=== PATIENT | female | born 2000 | race Caucasian/White ===

== ENCOUNTER 2019-02-13 01:05 | Emergency (ER) | payer OTHER ==
[2019-02-13] MEDS ORDERED: NORMAL SALINE 1000 ML 1,000 ML IV ONE (01:57)
[2019-02-13] MEDS ORDERED: ONDANSETRON HCL INJ/PF 4 MG/2 ML SDV IV ONE (01:58)
[2019-02-13] MEDS ORDERED: KETOROLAC TROMETHAMINE INJ/PF 30 MG/1 ML SDV IV ONE (01:58)
[2019-02-13 01:59] LABS: ABSOLUTE EOSINOPHILS # (AUTO) 0.1 10^3/uL (0.0-0.6); ABSOLUTE LYMPHOCYTES (AUTO) 1.8 10^3/uL (0.5-4.7); ABSOLUTE MONOCYTES (AUTO) 0.5 10^3/uL (0.1-1.4); BASOPHILS % (AUTO) 0.8 % (0-2); HEMATOCRIT 36.7 % (36.0-47.0); HEMOGLOBIN 12.4 g/dL (12.0-15.5); LYMPHOCYTES % (AUTO) 40.5 % (13-45); MEAN CORPUSCULAR HEMOGLOBIN 29.4 pg (27.0-33.4); MEAN CORPUSCULAR HGB CONC 33.7 g/dL (32.0-36.0); MEAN CORPUSCULAR VOLUME 87 fl (80-97); MONOCYTES % (AUTO) 11.2 % (3-13); PLATELET COUNT 226 10^3/uL (150-450); RED CELL DISTRIBUTION WIDTH 14.1 % (11.5-14.0); SEGMENTED NEUTROPHILS % (AUTO) 45.5 % (42-78); TOTAL CELLS COUNTED % (AUTO) 100 %; WHITE BLOOD COUNT 4.4 10^3/uL (4.0-10.5)
--- NOTE | 2019-02-13 02:00 | ER Document Report ---
ED General - General Chief Complaint: Abdominal Pain Stated Complaint: ABDOMINAL PAIN Time Seen by Provider: 02/13/19 01:34 Primary Care Provider: [facility] [Provider Group] - Follow up in 3-5 days TRAVEL OUTSIDE OF THE [place] IN LAST 30 DAYS: No - HPI Notes: Patient is a 18-year-old female that presents to the emergency department for chief complaint of right lower quadrant abdominal pain. Patient reports around 1 PM this afternoon she started having a sharp pain in her right lower abdomen. She states it was initially severe and has lessened to a dull ache currently. She states prior to the pain she felt nauseated and vomited one time. She reports constipation and denies any diarrhea. She denies any fevers or chills. She has had increased white vaginal discharge over the last few days. Patient is sexually active and does not use condoms or co ntrol. She has not taken a home test. LMP 01/12/19. She has no history of pregnancies in the past. Past Medical History: Negative Past Surgical History: Negative Social History: Denies drugs alcohol and tobacco Family History: Reviewed and noncontributory for presenting illness Allergies: Reviewed, see documented allergy list. REVIEW OF SYSTEMS: CONSTITUTIONAL : No fever No chills No diaphoresis No recent illness EENT: No vision changes No congestion No sore throat CARDIOVASCULAR: No chest pain No palpitations RESPIRATORY: No shortness of breath No cough No difficulty breathing GASTROINTESTINAL: abdominal pain nausea vomiting No diarrhea GENITOURINARY: No dysuria No hematuria No difficulty urinating MUSCULOSKELETAL: No back pain No leg pain No arm pain SKIN: No rashes No lesions LYMPHATIC: No swollen, enlarged glands. NEUROLOGICAL: No lightheadedness No headache No weakness No paresthesias PSYCHIATRIC: No anxiety No depression PHYSICAL EXAMINATION: Vital signs reviewed, nursing noted reviewed. GENERAL: Mildly diaphoretic, well-nourished HEAD: Atraumatic, normocephalic. EYES: Eyes appear normal, extraocular movements intact, sclera anicteric, conjunctiva are normal. ENT: nares patent, oropharynx clear without exudates. Moist mucous membranes. NECK: Normal range of motion, supple without lymphadenopathy LUNGS: Breath sounds clear to auscultation bilaterally and equal. No wheezes rales or rhonchi. HEART: Regular rate and rhythm without murmurs ABDOMEN: Soft, no McBurney's point tenderness, right adnexal tenderness, normoactive bowel sounds. Negative psoas sign. No rebound, guarding, or rigid ity. No masses appreciated. : No vaginal discharge, mild vaginal bleeding, no cervical motion tenderness, no external lesions, mild right adnexal tenderness with no fullness, no left adnexal tenderness, no uterine tenderness EXTREMITIES: Nontender, good range of motion, no pitting or edema. NEUROLOGICAL: No focal neurological deficits. Moves all extremities spontaneously Motor and sensory grossly intact on exam. PSYCH: Normal mood, normal affect. SKIN: Warm, diaphoretic, normal turgor, no rashes or lesions noted on exposed skin - Related Data Allergies/Adverse Reactions: No Known Allergies Allergy (Unverified 02/13/19 01:41) Past Medical History - Social History Smoking Status: Never Smoker Chew tobacco use (# tins/day): No Frequency of alcohol use: None Drug Abuse: None Family History: Reviewed & Not Pertinent Patient has suicidal ideation: No Patient has homicidal ideation: No Pulmonary Medical History: Reports: Hx Asthma Renal/ Medical History: Denies: Hx Peritoneal Dialysis Physical Exam - Vital signs Vitals: Temp Pulse Resp BP Pulse Ox 98.2 F 98 H 16 112/66 100 02/13/19 01:18 02/13/19 01:18 02/13/19 01:18 02/13/19 01:18 02/13/19 01:18 Course - Re-evaluation Re-evalutation: 02/13/19 02:00 Vitals reviewed. Nursing notes reviewed. Patient given IV fluids, Toradol and Zofran for symptom medic management. She appears mildly diaphoretic and uncomfortable. Ultrasound will be obtained to evaluate for possible ovarian torsion. Her tenderness is low in her pelvic region and not around McBurney's point. She has no leukocytosis or fevers and I am not currently concerned for acute appendicitis. 02/13/19 03:47 Patient's lab work is unremarkable. Her ultrasound shows no ovarian torsion or cyst. On reevaluation after medication she is no longer diaphoretic and is feeling much better. Gonorrhea and Chlamydia testing has not resulted, I offered patient prophylactic treatment versus waiting for her results. She does not wish to have prophylactic antibiotic treatment and also does not wish to wait for the results. I told her if it was positive I would call her but she would have to come back to the emergency room for treatment. She is in agreement with this plan of care. Patient will be discharged home in stable condition and encouraged to follow with her intermediate project manager. Laboratory 02/13/19 02/13/19 02/13/19 01:50 01:50 01:50 WBC 4.4 RBC 4.20 Hgb 12.4 Hct 36.7 MCV 87 MCH 29.4 MCHC 33.7 RDW 14.1 H Plt Count 226 Seg Neutrophils % 45.5 Lymphocytes % 40.5 Monocytes % 11.2 Eosinophils % 2.0 Basophils % 0.8 Absolute Neutrophils 2.0 Absolute Lymphocytes 1.8 Absolute Monocytes 0.5 Absolute Eosinophils 0.1 Absolute Basophils 0.0 Sodium 140.4 Potassium 3.6 Chloride 107 Carbon Dioxide 26 Anion Gap 7 BUN 17 Creatinine 0.53 Est GFR ( Amer) > 60 Est GFR (Non-Af Amer) > 60 Glucose 98 Calcium 9.7 Total Bilirubin 0.4 Direct Bilirubin 0.2 Neonat Total Bilirubin Not Reportable Neonat Direct Bilirubin Not Reportable Neonat Indirect Bili Not Reportable AST 23 ALT 25 Alkaline Phosphatase 58 Total Protein 6.7 Albumin 3.9 Lipase 138.4 Urine Color YELLOW Urine Appearance SLIGHTLY-CLOUDY Urine pH 7.0 Ur Specific [place] 1.027 Urine Protein NEGATIVE Urine Glucose (UA) NEGATIVE Urine Ketones NEGATIVE Urine Blood SMALL H Urine Nitrite NEGATIVE Urine Bilirubin NEGATIVE Urine Urobilinogen 2.0 H Ur Leukocyte Esterase NEGATIVE Urine WBC (Auto) 2 Urine RBC (Auto) 1 Urine Bacteria (Auto) 1+ Squamous Epi Cells Auto 5 Urine Mucus (Auto) MOD Urine Ascorbic Acid NEGATIVE Urine HCG, Qual NEGATIVE Epi Cells (Wet Prep) Bacteria (Wet Prep) Trichomonas (Wet Prep) Vaginal WBC Vaginal RBC Vaginal Yeast 02/13/19 02:20 WBC RBC Hgb Hct MCV MCH MCHC RDW Plt Count Seg Neutrophils % Lymphocytes % Monocytes % Eosinophils % Basophils % Absolute Neutrophils Absolute Lymphocytes Absolute Monocytes Absolute Eosinophils Absolute Basophils Sodium Potassium Chloride Carbon Dioxide Anion Gap BUN Creatinine Est GFR ( Amer) Est GFR (Non-Af Amer) Glucose Calcium Total Bilirubin Direct Bilirubin Neonat Total Bilirubin Neonat Direct Bilirubin Neonat Indirect Bili AST ALT Alkaline Phosphatase Total Protein Albumin Lipase Urine Color Urine Appearance Urine pH Ur Specific [place] Urine Protein Urine Glucose (UA) Urine Ketones Urine Blood Urine Nitrite Urine Bilirubin Urine Urobilinogen Ur Leukocyte Esterase Urine WBC (Auto) Urine RBC (Auto) Urine Bacteria (Auto) Squamous Epi Cells Auto Urine Mucus (Auto) Urine Ascorbic Acid Urine HCG, Qual Epi Cells (Wet Prep) 3+ EPITHELIALS SEEN Bacteria (Wet Prep) 3+ BACTERIA SEEN Trichomonas (Wet Prep) NO TRICHOMONAS SEEN Vaginal WBC 1+ WBCS SEEN Vaginal RBC 2+ RBCS SEEN Vaginal Yeast NO YEAST SEEN 02/13/19 03:55 - Vital Signs Vital signs: Temp Pulse Resp BP Pulse Ox 98.2 F 98 H 16 112/66 100 02/13/19 01:18 02/13/19 01:18 02/13/19 01:18 02/13/19 01:18 02/13/19 01:18 - Laboratory Result Diagrams: 02/13/19 01:50 02/13/19 01:50 Laboratory results interpreted by me: 02/13/19 02/13/19 01:50 01:50 RDW 14.1 H Urine Blood SMALL H Urine Urobilinogen 2.0 H Discharge - Discharge Clinical Impression: Pelvic pain, Menstrual cramps Condition: Stable Disposition: HOME, SELF-CARE Instructions: Pelvic Pain ([facility]) Additional Instructions: Please return to the emergency department if you have any worsening, or concern of your symptoms. Please return to the emergency department if you develop chest pain, difficulty breathing, severe abdominal pain, or ongoing vomiting. Please follow-up with your primary care physician in 2-3 days and any other r ecommended physicians. If prescribed, take all medications as directed. If you have any questions or concerns do not hesitate to return the emergency department for evaluation. Referrals: [facility] [Provider Group] - Follow up in 3-5 days
[2019-02-13 02:04] LABS: APPEARANCE,URINE SLIGHTLY-CLOUDY; BILIRUBIN,URINE NEGATIVE (NEGATIVE); COLOR,URINE YELLOW; GLUCOSE, URINE NEGATIVE (NEGATIVE); KETONES,URINE NEGATIVE (NEGATIVE); LEUKOCYTE ESTERASE,URINE NEGATIVE (NEGATIVE); NITRITE,URINE NEGATIVE (NEGATIVE); PROTEIN,URINE NEGATIVE (NEGATIVE); URINE SPECIFIC GRAVITY 1.027
[2019-02-13 02:11] LABS: ALANINE AMINOTRANSFERASE 25 U/L (5-35); ALBUMIN 3.9 g/dL (3.7-5.6); ALKALINE PHOSPHATASE 58 U/L (50-135); ANION GAP 7 (5-19); ASPARTATE AMINO TRANSFERASE 23 U/L (5-30); BILIRUBIN,DIRECT 0.2 mg/dL (0.0-0.4); BILIRUBIN,TOTAL 0.4 mg/dL (0.2-1.3); BLOOD UREA NITROGEN 17 mg/dL (7-20); CALCIUM 9.7 mg/dL (8.4-10.2); CARBON DIOXIDE 26 mmol/L (22-30); CHLORIDE 107 mmol/L (98-107); GLUCOSE 98 mg/dL (75-110); LIPASE 138.4 U/L (23-300); POTASSIUM 3.6 mmol/L (3.6-5.0); SODIUM 140.4 mmol/L (137-145); TOTAL PROTEIN 6.7 g/dL (6.3-8.2)
[2019-02-13 02:46] LABS: BACTERIA (WET MOUNT) 3+ BACTERIA SEEN; EPITHELIALS (WET MOUNT) 3+ EPITHELIALS SEEN; RBCS (WET MOUNT) 2+ RBCS SEEN; T.VAGINALIS (WET MOUNT) NO TRICHOMONAS SEEN; WBCS (WET MOUNT) 1+ WBCS SEEN; YEAST (WET MOUNT) NO YEAST SEEN
--- NOTE | 2019-02-13 03:36 | RADIOLOGY REPORT (SQ) ---
Ultrasound pelvis transvaginal on 02/13/2019 at 2:59 AM CLINICAL INDICATION: Right adnexal pain COMPARISON: None FINDINGS: Multiple sonographic images are obtained throughout the pelvis by transvaginal approach, both transverse and sagittal images are obtained. Uterus measures approximately 7.7 x 3.9 x 4.5 cm. Endometrial stripe measures 8 mm which is within normal limits. Uterine myometrium appears homogeneous. Right ovary measures approximately 2.7 x 3.1 x 2.1 cm. Flow is demonstrated in the right ovary. Left ovary measures approximately 2.3 x 1.7 x 2.0 cm. Flow is demonstrated in the left ovary. No adnexal mass or fluid collection is noted. Trace free fluid is noted in the pelvis that is likely physiologic. IMPRESSION: Unremarkable exam.
[2019-02-13 04:06] VITALS: BP 121/72
[2019-02-13 04:13] LABS: CHLAM PCR NOT DETECTED (NOT DETECT); GON PCR NOT DETECTED (NOT DETECT)
== END 2019-02-13 04:05 | disposition home or self-care (01) ==
LOC: ER 01:05
DX: N94.6 Dysmenorrhea, unspecified (principal); R10.31 Right lower quadrant pain; R10.2 Pelvic and perineal pain; R11.2 Nausea with vomiting, unspecified
CPT/HCPCS: 99284; 96361; 96374; 96375; 36415; 87210; 83690; 85025; 81025; 80053; 81001; 87491; 87591; 76830; 93976; J1885; J2405; J7030

== ENCOUNTER 2020-07-11 13:13 | Inpatient (IN) | payer SELFPAY ==
[~2020-07-11 13:13] MED LIST: GLYCOPYRROLATE 1 MG/5 ML VIAL ONE; KETOROLAC TROMETHAMINE 60 MG/2 ML SDV ONE; NEOSTIGMINE METHYLSULFATE 10 MG/10 ML VIAL ONE; ONDANSETRON HCL INJ/PF 4 MG/2 ML SDV ONE
--- NOTE | 2020-07-11 13:29 | ER Document Report ---
ED Medical Screen (RME) - General Chief Complaint: Abdominal Pain Stated Complaint: ABDOMINAL PAIN Time Seen by Provider: 07/11/20 13:18 TRAVEL OUTSIDE OF THE [place] IN LAST 30 DAYS: No - HPI Notes: 07/11/20 13:25 20 yr old female presents today with complaints of 3 episodes of a syncopal along with having severe abdominal pain that woke her up out of sleep at 5 AM this been causing nausea and vomiting. She states she was in the bathroom and she passed out 3 separate times for about 5 minutes which was confirmed by her . Reports her last menstrual cycle was over a month ago. Reports severe right greater than left lower abdominal pain that started at 5 AM. Denies any vaginal bleeding or vaginal discharge. Denies any new medications foods or travel. Has not tried any [id number] medications. Patient does not have a history of fainting, passing out or syncopal events. Nondiabetic. I have greeted and performed a rapid initial assessment of this patient. A comprehensive ED assessment and evaluation of the patient, analysis of test results and completion of the medical decision making process will be conducted by additional ED providers. PHYSICAL EXAMINATION: GENERAL: Acutely ill, malnourished in mild distress. HEAD: Atraumatic, normocephalic. NECK: Normal range of motion CV: s1, s2 regular LUNGS: No respiratory distress abd: RLQ, LLQ abd pain on palpation. Musculoskeletal: Normal range of motion NEUROLOGICAL: Normal speech SKIN: Warm, Dry, normal turgor, no rashes or lesions noted. Diaphoretic - Related Data Allergies/Adverse Reactions: No Known Allergies Allergy (Unverified 02/13/19 01:41) Past Medical History Pulmonary Medical History: Reports: Hx Asthma Renal/ Medical History: Denies: Hx Peritoneal Dialysis Physical Exam - Vital signs Vitals: Temp Pulse Resp BP Pulse Ox 98.5 F 76 14 108/64 100 07/11/20 13:21 07/11/20 13:21 07/11/20 13:21 07/11/20 13:21 07/11/20 13:21 Course - Vital Signs Vital signs: Temp Pulse Resp BP Pulse Ox 98.5 F 76 14 108/64 100 07/11/20 13:21 07/11/20 13:21 07/11/20 13:21 07/11/20 13:21 07/11/20 13:21
[2020-07-11] MEDS ORDERED: ONDANSETRON HCL INJ/PF 4 MG/2 ML SDV IV ONE (13:46)
[2020-07-11] MEDS ORDERED: MORPHINE SULFATE 10 MG/ML INJ IV ONE (13:46)
[2020-07-11 13:47] LABS: ABSOLUTE LYMPHOCYTES (AUTO) 1.5 10^3/uL (0.5-4.7); ABSOLUTE MONOCYTES (AUTO) 0.6 10^3/uL (0.1-1.4); ABSOLUTE NEUT (AUTO) 7.2 10^3/uL (1.7-8.2); BASOPHILS % (AUTO) 0.4 % (0-2); EOSINOPHILS % (AUTO) 0.4 % (0-6); HEMATOCRIT 35.1 % (36.0-47.0); HEMOGLOBIN 11.8 g/dL (12.0-15.5); LYMPHOCYTES % (AUTO) 16.2 % (13-45); MEAN CORPUSCULAR HEMOGLOBIN 29.6 pg (27.0-33.4); MEAN CORPUSCULAR HGB CONC 33.6 g/dL (32.0-36.0); MEAN CORPUSCULAR VOLUME 88 fl (80-97); MONOCYTES % (AUTO) 6.8 % (3-13); PLATELET COUNT 203 10^3/uL (150-450); RED BLOOD COUNT 3.99 10^6/uL (3.72-5.28); RED CELL DISTRIBUTION WIDTH 14.3 % (11.5-14.0); SEGMENTED NEUTROPHILS % (AUTO) 76.2 % (42-78); TOTAL CELLS COUNTED % (AUTO) 100 %; WHITE BLOOD COUNT 9.4 10^3/uL (4.0-10.5)
--- NOTE | 2020-07-11 13:48 | ER Document Report ---
ED General - General Chief Complaint: Syncope Stated Complaint: ABDOMINAL PAIN Time Seen by Provider: 07/11/20 13:18 Information source: Patient Notes: Patient is a 20-year-old female presenting to the emergency department chief complaint of low abdominal pain. Patient states it started about 5 AM and woke her out of sleep. Patient states the pain is worse in the lower quadrants she has had nausea vomiting and constipation. Patient did take some milk of magnesia to try and remedy the constipation and had several syncopal episodes since that time. Patient denies travel history trauma history sick contacts bad food exposure. TRAVEL OUTSIDE OF THE [place] IN LAST 30 DAYS: No - HPI Onset: Just prior to arrival Onset/Duration: Sudden Quality of pain: Fullness, Pressure Severity: Moderate Pain Level: 3 Associated symptoms: Nausea, Vomiting Exacerbated by: Standing, Movement Relieved by: Denies Similar symptoms previously: No Recently seen / treated by doctor: No - Related Data Allergies/Adverse Reactions: No Known Allergies Allergy (Unverified 02/13/19 01:41) Past Medical History - General Information source: Patient - Social History Smoking Status: Never Smoker Chew tobacco use (# tins/day): No Frequency of alcohol use: Social Drug Abuse: None Lives with: Spouse/Significant other Family History: Reviewed & Not Pertinent Patient has suicidal ideation: No Patient has homicidal ideation: No Pulmonary Medical History: Reports: Hx Asthma Renal/ Medical History: Denies: Hx Peritoneal Dialysis Past Surgical History: Reports: Hx Tonsillectomy Review of Systems - Review of Systems Notes: REVIEW OF SYSTEMS: CONSTITUTIONAL : Per HPI EENT: Denies eye, ear, throat, or mouth pain or symptoms. Denies nasal or sinus congestion. CARDIOVASCULAR: Denies chest pain. RESPIRATORY: Denies cough, cold, or chest congestion. Denies shortness of br eath, difficulty breathing, or wheezing. GASTROINTESTINAL: Per HPI GENITOURINARY: Denies difficulty urinating, painful urination, burning, frequency, or blood in urine. MUSCULOSKELETAL: Denies neck or back pain or joint pain or swelling. SKIN: Denies rash or skin lesions. HEMATOLOGIC : Denies easy bruising or bleeding. NEUROLOGICAL: Per HPI PSYCHIATRIC: Denies suicidal or homicidal ideations 10 Systems are negative unless otherwise specified above Physical Exam - Vital signs Vitals: Temp Pulse Resp BP Pulse Ox 98.5 F 76 14 108/64 100 07/11/20 13:21 07/11/20 13:21 07/11/20 13:21 07/11/20 13:21 07/11/20 13:21 - Notes Notes: PHYSICAL EXAMINATION: GENERAL: Patient is a 20-year-old female presenting to the emergency department pale diaphoretic in obvious distress secondary to abdominal pain HEAD: Atraumatic, normocephalic. EYES: Pupils equal round and reactive to light, extraocular movements intact, sclera anicteric, conjunctiva are normal. ENT: nares patent, oropharynx clear without exudates. Dry mucous membranes. NECK: Normal range of motion, supple without lymphadenopathy, no appreciable JVD LUNGS: Lungs clear to auscultation bilaterally and equal. No wheezes rales or rhonchi. HEART: Regular rate and rhythm without murmurs ABDOMEN: Lower abdomen demonstrates firmness rebound to the right lower quadrant and guarding throughout EXTREMITIES: Active full range of motion, no pitting or edema. No cyanosis. 2+ pulses x4 NEUROLOGICAL: No focal neurological deficits. Moves all extremities spontaneously and on command. SKIN: Warm, Dry, and intact. Patient does appear pale Course - Re-evaluation Re-evalutation: 07/11/20 15:36 Patient has been maintained in the emergency department on a cutting machine operator helper. Patient has been reevaluated multiple times by myself and nursing staff. At 1510 hrs. I got a call from the radiologist explaining that the CT abdomen pelvis is demonstrating blood and fluid in the abdomen and pelvis all the way up to the liver and spleen. I spoke with general surgery at 1515 his recommendation is to call OB. At [address] Marcelo DIRECTOR OF SEARCH ENGINE MARKETING on-call who has since presented to the emergency department and is discussing management with the patient. The patient did receive Zofran and morphine for pain and na usea management. Patient is receiving normal saline 125 cc an hour. Patient's blood pressure has remained stable. Patient will receive 1 g of Rocephin IV for management of a urinary tract infection. 07/11/20 15:38 07/11/20 16:06 Patient has been advised by DIRECTOR OF SEARCH ENGINE MARKETING that she would be going to the OR for evacuation of blood and fluid from abdomen and pelvis. Patient remained stable at this time. - Vital Signs Vital signs: Temp Pulse Resp BP Pulse Ox 98.5 F 76 16 116/71 100 07/11/20 13:21 07/11/20 13:21 07/11/20 14:01 07/11/20 14:00 07/11/20 13:34 - Laboratory Result Diagrams: 07/11/20 13:30 07/11/20 13:30 Laboratory results interpreted by me: 07/11/20 07/11/20 07/11/20 13:30 13:30 13:30 Hgb 11.8 L Hct 35.1 L RDW 14.3 H Sodium 134.4 L Glucose 136 H Urine Protein Urine Blood Urine Bilirubin Ur Leukocyte Esterase Crossmatch See Detail 07/11/20 13:55 Hgb Hct RDW Sodium Glucose Urine Protein 100 H Urine Blood MODERATE H Urine Bilirubin SMALL H Ur Leukocyte Esterase MODERATE H Crossmatch - Diagnostic Test Radiology reviewed: Image reviewed, Reports reviewed - EKG Interpretation by Me EKG shows normal: Sinus rhythm Rate: Normal Rhythm: NSR When compared to previous EKG there are: Previous EKG unavailable Critical Care Note - Critical Care Note Total time excluding time spent on procedures (mins): 35 Comments: Please allow 35 minutes of critical care time spent obtaining history from patient or surrogate, discussions with consultants, development of treatment plan with patient or surrogate, evaluation of patient's response to treatment, examination of patient. This also includes ordering and reviewing laboratory, EKG and / or radiologic studies, performing and reassessing treatments and interventions as well as reviewing previous visits and old charts. This is exclusive of separately billable procedures. Discharge - Discharge Clinical Impression: Hemoperitoneum Condition: Serious Disposition: ADMITTED INPATIENT Admitting Provider: antoine Unit Admitted: Surgical Floor
[2020-07-11 14:03] LABS: ALBUMIN 4.2 g/dL (3.5-5.0); ALKALINE PHOSPHATASE 48 U/L (38-126); ANION GAP 6 (5-19); ASPARTATE AMINO TRANSFERASE 26 U/L (14-36); BILIRUBIN,DIRECT 0.2 mg/dL (0.0-0.4); BILIRUBIN,TOTAL 0.8 mg/dL (0.2-1.3); BLOOD UREA NITROGEN 18 mg/dL (7-20); CALCIUM 9.3 mg/dL (8.4-10.2); CARBON DIOXIDE 23 mmol/L (22-30); CHLORIDE 105 mmol/L (98-107); GLUCOSE 136 mg/dL (75-110); POTASSIUM 4.1 mmol/L (3.6-5.0)
[2020-07-11 14:26] LABS: APPEARANCE,URINE CLOUDY; BILIRUBIN,URINE SMALL (NEGATIVE); COLOR,URINE AMBER; GLUCOSE, URINE NEGATIVE (NEGATIVE); KETONES,URINE NEGATIVE (NEGATIVE); LEUKOCYTE ESTERASE,URINE MODERATE (NEGATIVE); NITRITE,URINE NEGATIVE (NEGATIVE); PROTEIN,URINE 100 mg/dL (NEGATIVE); URINE SPECIFIC GRAVITY 1.029; UROBILINOGEN,URINE NEGATIVE mg/dL (<2.0)
--- NOTE | 2020-07-11 14:53 | RADIOLOGY REPORT (SQ) ---
EXAM DESCRIPTION: U/S NON OB PEL TV W/DOPPLER IMAGES COMPLETED DATE/TIME: 07/11/2020 2:40 pm REASON FOR STUDY: severe pelvic/abd pain L>R, lmp x1m, diaphoretic COMPARISON: None. TECHNIQUE: Dynamic and static grayscale images acquired of the pelvis via transvaginal approach and recorded on PACS. Additional selected color Doppler and spectral images recorded. LIMITATIONS: None. FINDINGS: UTERUS: Contour normal. No mass. ENDOMETRIAL STRIPE: No focal or generalized thickening. No masses. CERVIX: No nabothian cysts. RIGHT OVARY AND DOPPLER: Normal size. No worrisome masses. Normal arterial vascular flow without evid ence for torsion. LEFT OVARY AND DOPPLER: Ill-defined heterogenous mass in the adnexa. Indistinct margins. Overall me asurements 6.8 x 9.5 cm. Flow present on Doppler imaging. FREE FLUID: Prominent free fluid present. OTHER: No other significant finding. MEASUREMENTS: UTERUS: 3.7 x 4.2 x 8.1 cm. ENDOMETRIAL STRIPE: 8 mm. RIGHT OVARY: 2.0 x 2.8 x 3.5 cm. LEFT OVARY: 6.8 x 7.2 x 9.5 cm. IMPRESSION: ILL-DEFINED HETEROGENOUS MASS IN THE LEFT ADNEXA WITH FREE FLUID PRESENT. THIS COULD BE DUE TO PELVIC INFLAMMATORY DISEASE AND TUBO-OVARIAN ABSCESS. TECHNICAL DOCUMENTATION: JOB ID: [id number] 2010 [employer]- All Rights Reserved Rev Reading location - IP/workstation name: [email or web address]
--- NOTE | 2020-07-11 15:13 | RADIOLOGY REPORT (SQ) ---
EXAM DESCRIPTION: CT HEAD WITHOUT IMAGES COMPLETED DATE/TIME: 07/11/2020 3:01 pm REASON FOR STUDY: syncopal event x 3 today, 5 minutes apart COMPARISON: None. TECHNIQUE: Axial images acquired through the brain without intravenous contrast. Images reviewed wi th bone, brain and subdural windows. Additional sagittal and coronal reconstructions were generated. Images stored on PACS. All CT scanners at this facility use dose modulation, iterative reconstruction, and/or weight based d osing when appropriate to reduce radiation dose to as low as reasonably achievable (ALARA). [facility]: Dose Right [facility]: CareDose [facility]: Dose Right [facility]: Teradose 4D [facility]: Smart SportsCstr RADIATION DOSE: CT Rad equipment meets quality standard of care and radiation dose reduction techniq ues were employed. CTDIvol: 48.7 mGy. DLP: 1004 mGy-cm. mGy. LIMITATIONS: None. FINDINGS: VENTRICLES: Normal size and contour. CEREBRUM: No masses. No hemorrhage. No midline shift. No evidence for acute infarction. Normal gra y/white matter differentiation. No areas of low density in the white matter. CEREBELLUM: No masses. No hemorrhage. No alteration of density. No evidence for acute infarction. EXTRAAXIAL SPACES: No fluid collections. No masses. ORBITS AND GLOBE: No intra- or extraconal masses. Normal contour of globe without masses. CALVARIUM: No fracture. PARANASAL SINUSES: No fluid or mucosal thickening. SOFT TISSUES: No mass or hematoma. OTHER: No other significant finding. IMPRESSION: NORMAL BRAIN CT WITHOUT CONTRAST. EVIDENCE OF ACUTE STROKE: NO. COMMENT: Quality ID # [id number]: Final reports with documentation of one or more dose reduction techniques (e.g., Automated exposure control, adjustment of the mA and/or kV according to patient size, use of iterative reconstruction technique) TECHNICAL DOCUMENTATION: JOB ID: [id number] 2010 [employer]- All Rights Reserved Reading location - IP/workstation name: [email or web address]
--- NOTE | 2020-07-11 15:24 | RADIOLOGY REPORT (SQ) ---
EXAM DESCRIPTION: CT ABD/PELVIS WITH IV ONLY IMAGES COMPLETED DATE/TIME: 07/11/2020 3:01 pm REASON FOR STUDY: severe lower abd pain since 0500, syncopal events COMPARISON: Pelvic ultrasound done earlier the same day. TECHNIQUE: CT scan of the abdomen and pelvis performed using helical scanning technique with dynamic intravenous contrast injection. No oral contrast. Images reviewed with lung, soft tissue, and bone windows. Reconstructed coronal and sagittal MPR images reviewed. Delayed images for evaluation of the urinary system also acquired. All images stored on PACS. All CT scanners at this facility use dose modulation, iterative reconstruction, and/or weight based d osing when appropriate to reduce radiation dose to as low as reasonably achievable (ALARA). [facility]: Dose Right [facility]: CareDose [facility]: Dose Right [facility]: Teradose 4D [facility]: BeehiveID CONTRAST TYPE AND DOSE: contrast/concentration: Isovue 350.00 mmol/ml; Total Contrast Delivered: 54. 0 ml; Total Saline Delivered: 40.0 ml RENAL FUNCTION: BUN 18, creatinine 0.64 RADIATION DOSE: CT Rad equipment meets quality standard of care and radiation dose reduction techniq ues were employed. CTDIvol: 2.4 - 3.4 mGy. DLP: 304 mGy-cm.. LIMITATIONS: None. FINDINGS: LOWER CHEST: No significant findings. No nodules or infiltrates. LIVER: Normal size. No masses. No dilated ducts. SPLEEN: Normal size. No focal lesions. PANCREAS: No masses. No significant calcifications. No adjacent inflammation or peripancreatic fluid collections. Pancreatic duct not dilated. GALLBLADDER: No identified stones by CT criteria. No inflammatory changes to suggest cholecystitis. ADRENAL GLANDS: No significant masses or asymmetry. RIGHT KIDNEY AND URETER: No solid masses. No significant calcifications. No hydronephrosis or hyd roureter. LEFT KIDNEY AND URETER: No solid masses. No significant calcifications. No hydronephrosis or hydr oureter. AORTA AND VESSELS: No aneurysm. No dissection. Renal arteries, SMA, celiac without stenosis. RETROPERITONEUM: No retroperitoneal adenopathy, hemorrhage or masses. BOWEL AND PERITONEAL CAVITY: High attenuating ascites most likely representing blood products. There is fluid surrounding the liver and spleen. Moderate fluid in the pelvis. Hounsfield units range be tween 35 and 40. APPENDIX: Not visualized. PELVIS: Complex left adnexal lesion is again noted consistent with the ultrasound. This is not appea r to represent simple abscess or cyst. This measures 5.2 x 4.9 cm. Possibly ruptured cyst. There i s high attenuating free fluid in the pelvis consistent with blood products. ABDOMINAL WALL: No masses. No hernias. BONES: No significant or acute findings. OTHER: No other significant finding. IMPRESSION: Complex left adnexal lesion measuring approximately 5.2 x 4.9 cm. High attenuating asci kim consistent with blood products in the abdomen and pelvis. GI tract is unremarkable. No free air . No bowel wall thickening. COMMENT: This report was called to Dr Estrada at15:17 on 07/11/2020. TECHNICAL DOCUMENTATION: JOB ID: [id number] Quality ID # [id number]: Final reports with documentation of one or more dose reduction techniques (e.g., Au tomated exposure control, adjustment of the mA and/or kV according to patient size, use of iterative reconstruction technique) 2010 [employer]- All Rights Reserved Reading location - IP/workstation name: [email or web address]
[2020-07-11] MEDS ORDERED: CEFTRIAXONE 1 GM/D5W RTU 1 GM/50 ML RTUPB IV ONE (15:33)
[2020-07-11] MEDS ORDERED: NORMAL SALINE 1000 ML 1,000 ML IV ONE (15:37)
[2020-07-11] MEDS ORDERED: NORMAL SALINE 250 ML IV PRN ×2 (16:03)
[2020-07-11] MEDS ORDERED: LIDOCAINE 2% INJ-PF (20 MG/ML) 10 ML AMPUL ONE (16:56)
[2020-07-11] MEDS ORDERED: FENTANYL CITRATE INJ/PF 100 MCG/2 ML AMPUL ONE (16:56)
[2020-07-11] MEDS ORDERED: DEXMEDETOMIDINE INJ 80 MCG/20 ML VIAL IV ONE (16:56)
[2020-07-11] MEDS ORDERED: HYDROMORPHONE HCL INJ/PF 2 MG/ML AMPULE ONE (16:56)
[2020-07-11] MEDS ORDERED: DEXAMETHASONE SOD PHOSPHATE INJ 4 MG/1 ML VIAL ONE (16:56)
[2020-07-11] MEDS ORDERED: MIDAZOLAM 2 MG/2 ML INJ ONE (16:56)
[2020-07-11] MEDS ORDERED: ONDANSETRON HCL INJ/PF 4 MG/2 ML SDV ONE (16:56)
[2020-07-11] MEDS ORDERED: PROPOFOL INJ 200 MG/20 ML VIAL IV ONE (16:56)
--- NOTE | 2020-07-11 17:01 | PDOC H&P ---
History of Present Illness Admission Date/PCP: 07/11/2020 History of Present Illness: RUSLAN KRAFT is a 20 year old female, G0 , who presented to the ER with severe abdominal pain that began this morning. She reports pain presently at 6-7/10 and is in lower abdomen. No nausea, vomiting, fever or chills She reports hx of ovarian cyst but it had resolved in 2019. She reports hx of cyst previously but US showed it resolved last year. Hx of PID and chlamydia in 2017 and she was treated for this. LMP was 3.5 wks ago. She is not on BC UPT here negative Past Medical History Pulmonary Medical History: Reports: Asthma Past Surgical History Past Surgical History: Reports: Tonsillectomy Social History Lives with: Spouse/Significant other Smoking Status: Never Smoker Family History Family History: Reviewed & Not Pertinent Parental Family History Reviewed: Yes Children Family History Reviewed: Yes Sibling(s) Family History Reviewed.: Yes Medication/Allergy Allergies/Adverse Reactions: No Known Allergies Allergy (Unverified 02/13/19 01:41) Review of Systems Constitutional: ABSENT: chills, fever(s), headache(s), weight gain, weight loss Cardiovascular: ABSENT: chest pain, dyspnea on exertion, edema, orthropnea, palpitations Respiratory: ABSENT: cough, hemoptysis Gastrointestinal: PRESENT: as per HPI - Rebound and guarding, abdominal pain Genitourinary: ABSENT: dysuria, hematuria Integumentary: ABSENT: rash, wounds Neurological: ABSENT: abnormal gait, abnormal speech, confusion, dizziness, focal weakness, syncope Psychiatric: ABSENT: anxiety, depression, homidical ideation, suicidal ideation Physical Exam - Physical Exam Vital Signs: Temp Pulse Resp BP Pulse Ox 98.5 F 76 16 116/71 100 07/11/20 13:21 07/11/20 13:21 07/11/20 14:01 07/11/20 14:00 07/11/20 13:34 Intake & Output 07/10/20 07/11/20 07/12/20 06:59 06:59 06:59 Weight 46.72 kg General appearance: PRESENT: no acute distress, cooperative Respiratory exam: PRESENT: clear to auscultation huma Cardiovascular exam: PRESENT: RRR, +S1, +S2 GI/Abdominal exam: PRESENT: soft, tenderness - Rebound and guarding postive Extremities exam: PRESENT: full ROM. ABSENT: calf tenderness, clubbing, pedal edema Psychiatric exam: PRESENT: appropriate affect, normal mood. ABSENT: homicidal ideation, suicidal ideation Skin exam: PRESENT: dry, intact, warm. ABSENT: cyanosis, rash Result Laboratory Results: 07/11/20 13:30 07/11/20 13:30 07/11/20 07/11/20 07/11/20 13:30 13:30 13:30 WBC 9.4 RBC 3.99 Hgb 11.8 L Hct 35.1 L MCV 88 MCH 29.6 MCHC 33.6 RDW 14.3 H Plt Count 203 Seg Neutrophils % 76.2 Sodium 134.4 L Potassium 4.1 Chloride 105 Carbon Dioxide 23 Anion Gap 6 BUN 18 Creatinine 0.64 Est GFR ( Amer) > 60 Glucose 136 H Calcium 9.3 Total Bilirubin 0.8 AST 26 Alkaline Phosphatase 48 Total Protein 7.0 Albumin 4.2 Lipase 93.5 Serum HCG, Qual NEGATIVE Urine Color Urine Appearance Urine pH Ur Specific [place] Urine Protein Urine Glucose (UA) Urine Ketones Urine Blood Urine Nitrite Ur Leukocyte Esterase Urine WBC (Auto) Urine RBC (Auto) Blood Type Antibody Screen 07/11/20 07/11/20 13:30 13:55 WBC RBC Hgb Hct MCV MCH MCHC RDW Plt Count Seg Neutrophils % Sodium Potassium Chloride Carbon Dioxide Anion Gap BUN Creatinine Est GFR ( Amer) Glucose Calcium Total Bilirubin AST Alkaline Phosphatase Total Protein Albumin Lipase Serum HCG, Qual Urine Color KALIA Urine Appearance CLOUDY Urine pH 5.0 Ur Specific [place] 1.029 Urine Protein 100 H Urine Glucose (UA) NEGATIVE Urine Ketones NEGATIVE Urine Blood MODERATE H Urine Nitrite NEGATIVE Ur Leukocyte Esterase MODERATE H Urine WBC (Auto) 53 Urine RBC (Auto) 25 Blood Type O POSITIVE Antibody Screen NEGATIVE Impressions: Transvaginal US 07/11/20 13:18 IMPRESSION: ILL-DEFINED HETEROGENOUS MASS IN THE LEFT ADNEXA WITH FREE FLUID PRESENT. THIS COULD BE DUE TO PELVIC INFLAMMATORY DISEASE AND TUBO-OVARIAN ABSCESS. Abdomen/Pelvis CT 07/11/20 13:19 IMPRESSION: Complex left adnexal lesion measuring approximately 5.2 x 4.9 cm. High attenuating ascites consistent with blood products in the abdomen and pelvis. GI tract is unremarkable. No free air. No bowel wall thickening. Head CT 07/11/20 13:19 IMPRESSION: NORMAL BRAIN CT WITHOUT CONTRAST. EVIDENCE OF ACUTE STROKE: NO. Assessment & Plan - Diagnosis (1) Adnexal cyst Is this a current diagnosis for this admission?: Yes (2) Hemoperitoneum Is this a current diagnosis for this admission?: Yes - Time Critical Time spent with patient: 15-24 minutes Medications reviewed and adjusted accordingly: Yes Anticipated Discharge Disposition: Home, Self Care Anticipated Discharge Timeframe: within 24 hours - Plan Summary Plan Summary: 20 G0 with hemoperitoneum and left adnexal cystic mass-likely ruptured left ovarian cyst --admit for out patient surgery -NPO and IVFs -Hgb 11, WBC normal -Ancef 1 gm prior to OR -Covid testing pending -Abdominal prep -Discussed risks, benefits and alternative to recommended procedure of diagnostic laparoscopy with evacuation of free fluid in the pelvis with removal of possible left bleeding cyst or other needed surgery to control bleeding in the abdomen. Consent signed along with blood consent -TYpe and crossed for 2 units: hold for OR
[2020-07-11] MEDS ORDERED: CEFAZOLIN INJ 1 GM VIAL ONE (17:17)
[2020-07-11] MEDS ORDERED: PROMETHAZINE HCL INJ 25 MG/1 ML VIAL IV PRN ×2 (18:08)
[2020-07-11] MEDS ORDERED: MORPHINE SULFATE 10 MG/ML INJ IV PRN (18:08)
[2020-07-11] MEDS: CEFAZOLIN 1 GM/D5W RTU 1 GM/50 ML RTUPB IV SCH ×2 (18:08→23:29)
[2020-07-11] MEDS ORDERED: OXYCODONE-ACETAMINOPHEN 5-325 MG TABLET PO PRN ×3 (18:08→19:51)
[2020-07-11] MEDS ORDERED: DIPHENHYDRAMINE HCL 50 MG/ML VIAL IV PRN (18:08)
[2020-07-11] MEDS ORDERED: MEPERIDINE HCL/PF INJ 25 MG/1 ML DISP.SYRIN IV PRN (18:08)
[2020-07-11] MEDS ORDERED: FENTANYL CITRATE INJ/PF 100 MCG/2 ML AMPUL IV PRN ×3 (18:08)
--- NOTE | 2020-07-11 18:37 | EKG REPORT ---
SEVERITY:- NORMAL ECG - SINUS RHYTHM : Confirmed by: Aric Shipman MD 11-Jul-2020 18:37:13
[2020-07-11] MEDS ORDERED: MEPERIDINE HCL/PF INJ 25 MG/1 ML DISP.SYRIN ONE (19:19)
[2020-07-11] MEDS ORDERED: KETOROLAC TROMETHAMINE INJ/PF 30 MG/1 ML SDV IV PRN (19:51)
[2020-07-11] MEDS ORDERED: HYDROMORPHONE HCL INJ/PF 2 MG/ML AMPULE IV PRN (19:51)
--- NOTE | 2020-07-11 20:09 | Operative Report ---
Operative Report DATE OF SURGERY: 07/11/20 PREOPERATIVE DIAGNOSIS: Acute lower abdominal pain. Hemoperitoneum on imaging. Left adnexa complex cystic structure POSTOPERATIVE DIAGNOSIS: Same as above plus. right paratubal cysts x3 OPERATION: Diagnostic laparoscopy with removal of hemoperitoneum, control of bleeding of left ovary with ligasure cautery and removal of right paratubal cysts x3 SURGEON: JILLIAN SANFORD ANESTHESIA: GA TISSUE REMOVED OR ALTERED: RIght paratubal cysts COMPLICATIONS: None ESTIMATED BLOOD LOSS: 450cc INTRAOPERATIVE FINDINGS: Large amount of blood in the pelivs and throughout abdomen. Left ovary with ruptured cyst and active bleeding along posterior surface. Right paratubal cysts x3. Normal appearing right ovary and fallopian tube. Left fallopian tube with adhesions between tube and ovary which were lysed. Small adhesion between liver and anterior abdominal wall. PROCEDURE: IV fluids: per anesthesia record Urinary output: 200 cc clear urine prior to OR Findings: Normal-appearing uterus as was right fallopian tube and ovary.Left ovary with ruptured cyst posteriorly and active bleeding. Left fallopian tube with adhesion between left tube and ovary. Liver with adhesion between liver anterior abdominal wall. Position: To recovery room in stable condition Description of procedure: The patient was taken to the operating room with general anesthesia administered and found to be adequate. She was then placed on the OR table and into the dorsal lithotomy position. The Patient was prepped and draped in usual sterile fashion. Timeout was taken. Bladder was emptied. A Gaspar retractor was used as well as a weighted speculum to visualize the cerv ix. The anterior lip of the cervix was then grasped with a single tooth tenaculum and a uterine manipulator was placed. At this time attention was turned of the patient's abdomen and sterile gloves were donned a 1 cm infra umbilical incision was made vertically and carried down to the level of the rectus fascia. The rectus fascia was then grasped with 2 Sofy clamps elevated and incised with Ng scissors. A digital sweep was done noting entry into the peritoneum. The fascia was tagged bilaterally with 0- vicryl suture. A #10 Calle trocar was positioned and CO2 gas was used to insufflate the abdomen to a quantity sufficient for the laparoscopy. Blood was noted on entry to the abdomen. The laparoscope was inserted and a survey was done of the abdomen pictures were obtained. Findings noted as above. The blood was suctioned from the patient's pelvis and surrounding organs. Two 5 mm ports were placed in bilateral lower quadrants under direct visualization. Adhesions were noted between the left fallopian tube and the left ovary. These were taken down with the LigaSure to allow access to the ovary. Clotted blood was noted surround the ovary making visualization difficult. Using the suction electro optical engineer the blood was removed. A grasper was used to elevate the left ovary and an area on the posterior side of the left ovary was noted to be actively bleeding. It appeared a cyst had ruptured in this area using the LigaSure the bleeding was controlled. A harpoon needle was then used to see if any further fluid could be aspirated from the left ovarian cyst no further fluid was accessible. Suction irrigation was done with normal saline and the area was inspected any bleeding was again controlled with the LigaSure cautery. Good hemostasis was obtained. Pictures were obtained At this point attention was turned to the right ovary and right fallopian tube the right ovary appeared normal the right fallopian tube had 3 small paratubal cyst and these were removed with grasper and LigaSure these will be sent to the lab labeled right paratubal cyst x3. Pictures were obtained. Further irrigation was done of the pelvis and remaining blood was suctioned from around the liver and gutters. No further bleeding was noted the left ovary was inspected once more and appeared to remain hemostatic. A final picture was obtained. At this point the procedure was terminated. All instrument removed from the patient's abdomen and CO2 gas was allowed to escape. The infraumbilical port was removed. The fascia was closed with 0 Vicryl suture. The skin was closed with 3-0 Monocryl in a series of interrupted stitiches. The skin incision was then clean dried and Dermabond was applied over the skin incision. All instrument sponge and needle counts were correct x3 for the procedure the patient tolerated the procedure well. She will proceed to recovery room in stable condition
[2020-07-11] MEDS: OXYCODONE-ACETAMINOPHEN 5-325 MG TABLET PO PRN (20:12)
[2020-07-11] MEDS: RINGERS SOLUTION,LACTATED 1,000 ML IV PRN (20:15)
[2020-07-12] MEDS: OXYCODONE-ACETAMINOPHEN 5-325 MG TABLET PO PRN ×2 (00:26→04:19)
[2020-07-12] MEDS: RINGERS SOLUTION,LACTATED 1,000 ML IV PRN (00:35)
[2020-07-12] MEDS: CEFAZOLIN 1 GM/D5W RTU 1 GM/50 ML RTUPB IV SCH (05:11)
[2020-07-12 06:58] LABS: ABSOLUTE LYMPHOCYTES (AUTO) 1.1 10^3/uL (0.5-4.7); ABSOLUTE MONOCYTES (AUTO) 0.6 10^3/uL (0.1-1.4); ABSOLUTE NEUT (AUTO) 7.1 10^3/uL (1.7-8.2); BASOPHILS % (AUTO) 0.2 % (0-2); HEMATOCRIT 25.9 % (36.0-47.0); LYMPHOCYTES % (AUTO) 12.3 % (13-45); MEAN CORPUSCULAR HEMOGLOBIN 29.6 pg (27.0-33.4); MEAN CORPUSCULAR HGB CONC 34.1 g/dL (32.0-36.0); MEAN CORPUSCULAR VOLUME 87 fl (80-97); MONOCYTES % (AUTO) 7.1 % (3-13); PLATELET COUNT 164 10^3/uL (150-450); RED BLOOD COUNT 2.98 10^6/uL (3.72-5.28); RED CELL DISTRIBUTION WIDTH 13.9 % (11.5-14.0); SEGMENTED NEUTROPHILS % (AUTO) 80.4 % (42-78); TOTAL CELLS COUNTED % (AUTO) 100 %; WHITE BLOOD COUNT 8.8 10^3/uL (4.0-10.5)
[2020-07-12 07:04] LABS: HEMOGLOBIN 8.8 g/dL (12.0-15.5)
--- NOTE | 2020-07-12 07:45 | PDOC DISCHARGE SUMMARY ---
Impression - Admit/DC Date/PCP Admission Date/Primary Care Provider: 07/11/20 15:48 Discharge Date: 07/12/20 - Discharge Diagnosis (1) Adnexal cyst Is this a current diagnosis for this admission?: Yes (2) Hemoperitoneum Is this a current diagnosis for this admission?: Yes - Assessment Summary: S/p dx lap with evaucaiton of hemoperiotoneum and repair of bleeding left ovary. Removal of right paratubal cysts. Stable with hgb drop from 11.8 to 8.8. WIll discharge on Iron and precautions. - Additional Information Resuscitation Status: Full Code Discharge Diet: As Tolerated Discharge Activity: Activity As Tolerated, No Driving - until not taking narcotic pain medications , No Lifting Over 10 Pounds, Pelvic Rest, Slowly Increase Activity, No tub bath, Walk Frequently Prescriptions: Ferrous Sulfate [Feosol 325 mg Tablet] 325 mg PO DAILY 30 Days #30 tablet Ibuprofen [Motrin 800 mg Tablet] 800 mg PO Q8 10 Days #30 tablet Hydrocodone/Acetaminophen [Hargill 5-325 mg Tablet] 1 tab PO Q4 PRN 4 Days #24 tablet PRN Reason: Home Medications: Ferrous Sulfate [Feosol 325 mg Tablet] 325 mg PO DAILY 30 Days #30 tablet 07/12/20 Hydrocodone/Acetaminophen [Hargill 5-325 mg Tablet] 1 tab PO Q4 PRN 4 Days #24 tablet 07/12/20 Ibuprofen [Motrin 800 mg Tablet] 800 mg PO Q8 10 Days #30 tablet 07/12/20 History of Present Illiness History of Present Illness: RUSLAN KRAFT is a 20 year old female, G0 , who presented to the ER with severe abdominal pain that began this morning. She reports pain presently at 6-7/10 and is in lower abdomen. No nausea, vomiting, fever or chills She reports hx of ovarian cyst but it had resolved in 2019. She reports hx of cyst previously but US showed it resolved last year. Hx of PID and chlamydia in 2017 and she was treated for this. LMP was 3.5 wks ago. She is not on BC UPT here negative Physical Exam - Physical Exam Vital Signs: Temp Pulse Resp BP Pulse Ox 98.3 F 63 16 106/60 100 07/12/20 04:52 07/12/20 04:52 07/12/20 04:52 07/12/20 04:52 07/12/20 04:52 Intake & Output 07/11/20 07/12/20 07/13/20 06:59 06:59 06:59 Intake Total 3492 Output Total 1625 Balance 1867 Weight 46.72 kg Results Laboratory Results: WBC 8.8 10^3/uL (4.0-10.5) 07/12/20 06:23 RBC 2.98 10^6/uL (3.72-5.28) L 07/12/20 06:23 Hgb 8.8 g/dL (12.0-15.5) L D 07/12/20 06:23 Hct 25.9 % (36.0-47.0) L 07/12/20 06:23 MCV 87 fl (80-97) 07/12/20 06:23 MCH 29.6 pg (27.0-33.4) 07/12/20 06:23 MCHC 34.1 g/dL (32.0-36.0) 07/12/20 06:23 RDW 13.9 % (11.5-14.0) 07/12/20 06:23 Plt Count 164 10^3/uL (150-450) 07/12/20 06:23 Lymph % (Auto) 12.3 % (13-45) L 07/12/20 06:23 [place] % (Auto) 7.1 % (3-13) 07/12/20 06:23 Eos % (Auto) 0.0 % (0-6) 07/12/20 06:23 Baso % (Auto) 0.2 % (0-2) 07/12/20 06:23 Absolute Neuts (auto) 7.1 10^3/uL (1.7-8.2) 07/12/20 06:23 Absolute Lymphs (auto) 1.1 10^3/uL (0.5-4.7) 07/12/20 06:23 Absolute Monos (auto) 0.6 10^3/uL (0.1-1.4) 07/12/20 06:23 Absolute Eos (auto) 0.0 10^3/uL (0.0-0.6) 07/12/20 06:23 Absolute Basos (auto) 0.0 10^3/uL (0.0-0.2) 07/12/20 06:23 Seg Neutrophils % 80.4 % (42-78) H 07/12/20 06:23 Sodium 134.4 mmol/L (137-145) L 07/11/20 13:30 Potassium 4.1 mmol/L (3.6-5.0) 07/11/20 13:30 Chloride 105 mmol/L (98-107) 07/11/20 13:30 Carbon Dioxide 23 mmol/L (22-30) 07/11/20 13:30 Anion Gap 6 (5-19) 07/11/20 13:30 BUN 18 mg/dL (7-20) 07/11/20 13:30 Creatinine 0.64 mg/dL (0.52-1.25) 07/11/20 13:30 Est GFR ( Amer) > 60 (>60) 07/11/20 13:30 Est GFR (MDRD) Non-Af > 60 (>60) 07/11/20 13:30 Glucose 136 mg/dL (75-110) H 07/11/20 13:30 Calcium 9.3 mg/dL (8.4-10.2) 07/11/20 13:30 Total Bilirubin 0.8 mg/dL (0.2-1.3) 07/11/20 13:30 Direct Bilirubin 0.2 mg/dL (0.0-0.4) 07/11/20 13:30 Neonat Total Bilirubin Not Reportable 07/11/20 13:30 Neonat Direct Bilirubin Not Reportable 07/11/20 13:30 Neonat Indirect Bili Not Reportable 07/11/20 13:30 AST 26 U/L (14-36) 07/11/20 13:30 ALT 11 U/L (<35) 07/11/20 13:30 Alkaline Phosphatase 48 U/L (38-126) 07/11/20 13:30 Total Protein 7.0 g/dL (6.3-8.2) 07/11/20 13:30 Albumin 4.2 g/dL (3.5-5.0) 07/11/20 13:30 Lipase 93.5 U/L (23-300) 07/11/20 13:30 Serum HCG, Qual NEGATIVE (NEGATIVE) 07/11/20 13:30 Urine Color KALIA 07/11/20 13:55 Urine Appearance CLOUDY 07/11/20 13:55 Urine pH 5.0 (5.0-9.0) 07/11/20 13:55 Ur Specific [place] 1.029 07/11/20 13:55 Urine Protein 100 mg/dL (NEGATIVE) H 07/11/20 13:55 Urine Glucose (UA) NEGATIVE mg/dL (NEGATIVE) 07/11/20 13:55 Urine Ketones NEGATIVE mg/dL (NEGATIVE) 07/11/20 13:55 Urine Blood MODERATE (NEGATIVE) H 07/11/20 13:55 Urine Nitrite NEGATIVE (NEGATIVE) 07/11/20 13:55 Urine Bilirubin SMALL (NEGATIVE) H 07/11/20 13:55 Urine Urobilinogen NEGATIVE mg/dL (<2.0) 07/11/20 13:55 Ur Leukocyte Esterase MODERATE (NEGATIVE) H 07/11/20 13:55 Urine WBC (Auto) 53 /HPF 07/11/20 13:55 Urine RBC (Auto) 25 /HPF 07/11/20 13:55 Urine Bacteria (Auto) 1+ /HPF 07/11/20 13:55 Urine WBC Clumps MOD /HPF 07/11/20 13:55 Squamous Epi Cells Auto 23 /HPF 07/11/20 13:55 Urine Mucus (Auto) MANY /LPF 07/11/20 13:55 Urine Ascorbic Acid NEGATIVE (NEGATIVE) 07/11/20 13:55 Urine HCG, Qual NEGATIVE (NEGATIVE) 07/11/20 13:55 SARS-CoV-2 (PCR) NEGATIVE (NEGATIVE) 07/11/20 16:05 Blood Type O POSITIVE 07/11/20 13:30 Blood Type Confirm O POSITIVE 07/11/20 16:45 Antibody Screen NEGATIVE 07/11/20 13:30 Crossmatch See Detail 07/11/20 13:30 Impressions: Transvaginal US 07/11/20 13:18 IMPRESSION: ILL-DEFINED HETEROGENOUS MASS IN THE LEFT ADNEXA WITH FREE FLUID PRESENT. THIS COULD BE DUE TO PELVIC INFLAMMATORY DISEASE AND TUBO-OVARIAN ABSCESS. Abdomen/Pelvis CT 07/11/20 13:19 IMPRESSION: Complex left adnexal lesion measuring approximately 5.2 x 4.9 cm. High attenuating ascites consistent with blood products in the abdomen and pelvis. GI tract is unremarkable. No free air. No bowel wall thickening. Head CT 07/11/20 13:19 IMPRESSION: NORMAL BRAIN CT WITHOUT CONTRAST. EVIDENCE OF ACUTE STROKE: NO. Stroke Is this a Stroke Patient?: No Acute Heart Failure - Is this a Heart Failure Patient?: No
[2020-07-12] MEDS ORDERED: IBUPROFEN 800 MG TABLET PO SCH (08:00)
[2020-07-12] MEDS: FERROUS SULFATE 325 MG TABLET PO SCH ×2 (08:53→11:09)
[2020-07-12 09:19] VITALS: BP 109/50
== END 2020-07-12 10:00 | disposition home or self-care (01) | DRG 742 ==
LOC: ER 13:13 → EH 15:48 → 2N 19:57
PROVIDERS: ADMIT Obstetrics & Gynecology; ATTEND Obstetrics & Gynecology
PROC: 0UB54ZZ Excision of Right Fallopian Tube, Percutaneous Endoscopic Approach (ICD-10-PCS; 2020-07-11)
PROC: 0W3 Anatomical Regions, General, Control (ICD-10-PCS; 2020-07-11)
PROC: 0W9N4ZZ Drainage of Female Perineum, Percutaneous Endoscopic Approach (ICD-10-PCS; 2020-07-11)
PROC: 0UB14ZZ Excision of Left Ovary, Percutaneous Endoscopic Approach (ICD-10-PCS; principal; 2020-07-11 17:00)
DX: N83.202 Unspecified ovarian cyst, left side (principal); K66.1 Hemoperitoneum; N83.8 Other noninflammatory disorders of ovary, fallopian tube and broad ligament; Z11.59 Encounter for screening for other viral diseases
CPT/HCPCS: 36415; 70450; 74177; 76830; 80053; 81001; 81025; 83690; 840; 84703; 85025; 86850; 86900; 86901; 86920; 87635; 88304; 93005; 93010; 93976; 96374; 96375; 99140; 99285; C9803; J0690; J0696; J1100; J1170; J1885; J2175; J2250; J2270; J2405; J2704; J2710; J3010; J3490; J7030; J7120